=== PATIENT | male | born 1945 | race Caucasian/White ===

== ENCOUNTER → 2016-10-17 | Outpatient (CLI) | payer MEDICARE, OTHER ==
[2016-10-17 14:24] LABS: ALBUMIN 3.7 g/dL (3.4-5.0); ANION GAP 14.3 MEQ/L (3-15); CALCULATED IONIZED CALCIUM 4.4 mg/dL (3.8-4.6); TOTAL PROTEIN 6.9 g/dL (6.4-8.5)
== END ==
LOC: LAB 13:47
PROVIDERS: ATTEND Family Medicine
DX: I10 Essential (primary) hypertension (principal); E78.00 Pure hypercholesterolemia, unspecified; I50.9 Heart failure, unspecified; E03.9 Hypothyroidism, unspecified; E11.9 Type 2 diabetes mellitus without complications
CPT/HCPCS: 36415; 80053; 80061; 83036; 83880; 84436; 84439; 84443; 84481; 86141

== ENCOUNTER → 2016-11-04 | Outpatient (CLI) | payer MEDICARE, OTHER ==
[~2016-11-04] MED LIST: AC500T PO; AMOX1TAB12 PO; CARV3.12T; CRV6.25T PO; DOCU50CA4; ENAL10TA PO; ENAL2.5T; FURO-124 PO; FURO20TA4; GLIP10TA13 PO; INSU100V2 SC; INSU100V32 SC; LEVO200T6 PO; LEVO75TA PO; LVT.025T; MAGN27TA2 PO; MINO100C2 PO; MINO50CA2; NF-GLIP2.5; NIAC500T9 PO; POTA10TA10 PO; POTA25TA7 PO; POTA99TA16
== END ==
LOC: RAD 11:11
PROVIDERS: ATTEND Family Medicine
DX: I10 Essential (primary) hypertension (principal)
CPT/HCPCS: 93306

== ENCOUNTER 2016-12-30 17:30 | Emergency (ER) | payer MEDICARE, OTHER ==
[~2016-12-30] VITALS: Ht 185.4 cm; Wt 120.0 kg
--- OUTSIDE RECORDS SUMMARY | 2016-12-30 17:34 | XMS REPORT | Continuity of Care Document ---
Author Author [facility] Organization [facility] Address Unknown Phone Unavailable Care Team Providers Care Supervisor Lens Generating Name Role Phone [place], Vasiliy Vega MD PP [phone] Insurance Providers Payer Name Policy Number Subscriber Name Relationship Medicare A And B [id number] Derrick Jovel 18 Self / Same As Patient Other5 [id number] Kerry Jovel 18 Self / Same As Patient Advance Directives Directive Response Recorded Date Advanced Directives Yes 03/22/13 4:29pm Type Durable Power of Patent Law Specialist 03/22/13 4 :29pm Problems Medical Problem Onset Date pilonidal cyst 09/20/12 Diabetes mellitus type 2 05/28/12 Social History History Response Recorded Date/Time Exposure to occupational hazards N 2:34pm Allergies, Adverse Reactions, Alerts Allergen Type Severity Reaction Last Updated No Known Allergies Allergy 09/20/12 Medications Medication Dose Units Route Sig Qty Days Amoxicillin/Potassium Clav (Amox Tr-K Clv 875-125 Mg Tab) 1 Tab PO BID Acetaminophen (Tylenol Tab) 1 - 2 Tab PO Q6H PRN Potassium Chloride 750 Mg PO BID WITH MEALS Levothyroxine Sodium (Synthroid) 225 Mcg PO DAILY Niacin 500 Mg PO HS Minocycline Hcl 100 Mg PO BID Furosemide (Lasix) 40 Mg PO DAILY Glipizide 5 Mg PO BID Enalapril Maleate 10 Mg PO DAILY Carvedilol 6.25 Mg PO BID Magnesium Amino Acid Chelate (Magnesium) 1 Tab PO UD Insulin Glargine,Hum.rec.anlog (Lantus) 35 Units SC HS Insulin Lispro (Humalog) 12 Units SC TIDWM Potassium Bicarbonate/Cit Ac (Potassium 25 Meq Tablet Eff) 25 Meq PO DAILY Levothyroxine Sodium 225 Mcg PO DAILY Docusate Sodium (Stool Softener) Minocycline Hcl Carvedilol Potassium Gluconate (Potassium) Furosemide Levothyroxine Sodium Glipizide (Glipizide Er [Nf]) Enalapril Maleate Immunizations Name Given Type Date Pneumonia Vaccine Received if Current 05/22/12 H Date Influenza Vaccine Received if Current 05/22/12 H Response Recorded Date/Time Status not known Unknown Results Test Date Result Interp. Ref. Range Absolute Neutrophil March 27, 2013 1:50pm 0.0 # - Alanine Aminotransferase (ALT/SGPT) May 01, 2013 1: 41pm 26 U/L L 30-65 Albumin May 01, 2013 1:41pm 4.1 G/ DL N 3.4-5.0 Albumin/Globulin Ratio May 01, 2013 1:41pm 3.4 H 1.1-1.8 Alkaline Phosphatase May 01, 2013 1:41pm 84 U/L N 38-126 Aspartate Amino Transf (AST/SGOT) May 01, 2013 1:41pm 27 U/L N 15-37 B-Type Natriuretic Peptide March 15, 2013 11:22am 85 PG/ML N 0-100 BUN/Creatinine Ratio May 01, 2013 1:41pm 25 H 10-20 Band Neutrophils % March 27, 2013 1:50pm 0 % N 0-6 Basophils # (Auto) May 01, 2013 1:41pm 0.1 10^3/uL - Basophils % (Manual) March 27, 2013 1:50pm 0 % N 0-2 Basophils (%) (Auto) May 01, 2013 1:41pm 1 % N 0-2 Blood Morphology Comment March 27, 2013 1:50pm Normal - Blood Urea Nitrogen May 01, 2013 1:41pm 37 MG/DL H 7-18 C-Reactive Protein May 01, 2013 1:41pm 0.70 MG/DL N 0.0-0.9 Calcium Level May 01, 2013 1:41pm 10.0 MG/DL N 8.8-10.8 Calcium/Ionized Calcium Ratio May 01, 2013 1:41pm 4.00 mg/dL - Calculated Osmolality May 01, 2013 1:41pm 281 MOSM/L N 280-300 Carbon Dioxide Level May 01, 2013 1:41pm 24 MMOL/L N 22-29 Chloride Level May 01, 2013 1:41pm 105 MMOL/L N 98-108 Creatinine May 01, 2013 1:41pm 1.50 mg/dL N 0.8-1.5 Differential Total Cells Counted March 27, 2013 1:50pm 100 - Eosinophils # March 27, 2013 1:50pm 0.4 # - Eosinophils # (Auto) May 01, 2013 1:41pm 0.4 10^3/uL - Eosinophils % (Manual) March 27, 2013 1:50pm 6 % H 0-4 Eosinophils (%) (Auto) May 01, 2013 1:41pm 4 % N 0-4 Erythrocyte Sedimentation Rate May 01, 2013 1:41pm 21 mm/hr H 0-19 Estimat Glomerular Filtration Rate May 01, 2013 1: 41pm 56.7 - Estimated GFR (Non- May 01, 2013 1: 41pm 46.8 - Glucose Level May 01, 2013 1:41pm 123 MG/DL H 70-110 Hematocrit May 01, 2013 1:41pm 40.90 % N 39.00-50.00 Hemoglobin May 01, 2013 1:41pm 13.5 g/dL N 13.5-17.0 Lab Scanned Report September 28, 2012 11:08am INPATIENT BLOOD COMPONENT ADMIN RECORD [id number] - Lymphocytes # March 27, 2013 1:50pm 1.5 # - Lymphocytes # (Auto) May 01, 2013 1:41pm 2.4 X 10^3 - Lymphocytes % (Manual) March 27, 2013 1:50pm 22 % N 20-46 Lymphocytes (%) (Auto) May 01, 2013 1:41pm 30 % N 20-46 Mean Corpuscular Hemoglobin May 01, 2013 1:41pm 31.7 PG N 26.0-34.0 Mean Corpuscular Hemoglobin Concent May 01, 2013 1: 41pm 33.0 g/dL N 31.0- 37.0 Mean Corpuscular Volume May 01, 2013 1:41pm 96 FL N 80-100 Mean Platelet Volume May 01, 2013 1:41pm 10.1 FL H 6.0-9.5 Metamyelocytes % March 13, 2013 4:47pm 0 % N 0-1 Monocytes # March 27, 2013 1:50pm 0.0 # - Monocytes # (Auto) May 01, 2013 1:41pm 0.9 X 10^3 - Monocytes % (Manual) March 27, 2013 1:50pm 0 % L 3-11 Monocytes (%) (Auto) May 01, 2013 1:41pm 11 % N 3-11 Neutrophils # March 27, 2013 1:50pm 5.0 # - Neutrophils # (Auto) May 01, 2013 1:41pm 4.4 X 10^3 - Neutrophils (%) (Auto) May 01, 2013 1:41pm 54 % N 51-67 Platelet Count May 01, 2013 1:41pm 278 10^3/uL N 150-450 Polychromasia March 13, 2013 4:47pm Slight - Potassium Level May 01, 2013 1:41pm 4.8 MMOL/L N 3.5-5.1 Prothromb Time International Ratio January 31, 2013 3:35pm 0.9 N 0.8-1.4 Prothrombin Time January 31, 2013 3:35pm 12.8 SEC N 12.3-14.4 Red Blood Count May 01, 2013 1:41pm 4.26 10^6/uL L 4.50-5.50 Red Cell Distribution Width May 01, 2013 1:41pm 14.3 % N 11.8-15.6 Segmented Neutrophils % March 27, 2013 1:50pm 72 % H 51-67 Sodium Level May 01, 2013 1:41pm 140 MMOL/L N 135-150 Total Bilirubin May 01, 2013 1:41pm 0.6 MG/DL N 0.1-1.0 Total Creatine Kinase March 27, 2013 1:50pm 32 U/L L 55-170 Total Protein May 01, 2013 1:41pm 7.5 G/DL N 6.4-8.5 Troponin I May 28, 2012 4:25pm < 0.012 NG/ML 0.010-0.080 Vancomycin Level Trough March 13, 2013 4:47pm 10.1 UG/ML N 10.0-15.0 White Blood Count May 01, 2013 1:41pm 8.18 10^3/uL N 4.0-11.0 Procedures Procedure Code Date REMOVE PILONIDAL CYST COMPL 11083 EXCISION OF PILONID CYST 86.21 09/21/12 PT EVALUATION 65793 09/26/12 NEG PRESS WOUND TX >50 CM 33594 09/26/12 NEG PRESS WOUND TX >50 CM 81989 09/26/12 NEG PRESS WOUND TX >50 CM 18814 12/28/12 COMPREHEN METABOLIC PANEL 17004 01/31/13 COMPLETE CBC W/AUTO DIFF WBC 50483 PROTHROMBIN TIME 31094 01/31/13 ROUTINE VENIPUNCTURE 43697 01/31/13 ASSAY OF NATRIURETIC PEPTIDE 76017 ROUTINE VENIPUNCTURE 50546 03/15/13 COMPREHEN METABOLIC PANEL 06660 03/27/13 ASSAY OF CK (CPK) 78175 03/27/13 BL SMEAR W/DIFF WBC COUNT 48444 03/27/13 COMPLETE CBC AUTOMATED 21246 03/27/13 RBC SED RATE AUTOMATED 53174 03/27/13 C-REACTIVE PROTEIN 69951 03/27/13 ROUTINE VENIPUNCTURE 95871 03/27/13 COMPREHEN METABOLIC PANEL 89055 04/03/13 COMPLETE CBC W/AUTO DIFF WBC 84135 RBC SED RATE AUTOMATED 63447 04/03/13 C-REACTIVE PROTEIN 11702 04/03/13 ROUTINE VENIPUNCTURE 48997 04/03/13 COMPREHEN METABOLIC PANEL 05343 05/01/13 COMPLETE CBC W/AUTO DIFF WBC 37018 RBC SED RATE AUTOMATED 02615 05/01/13 C-REACTIVE PROTEIN 90288 05/01/13 ROUTINE VENIPUNCTURE 94922 05/01/13 Gram Stain 09/21/12 Anaerobic Culture 09/21/12 Encounters Encounter Location Date/Time Discharged Inpatient [facility] 09/21/12 6:34am Departed Emergency Room [facility] 05/28/12 3:44pm
[2016-12-30 21:10] VITALS: BP 126/75
== END 2016-12-30 21:10 | disposition home or self-care (01) ==
LOC: ED 17:31
DX: L05.92 Pilonidal sinus without abscess (principal)
CPT/HCPCS: 99282; 99283